=== PATIENT | male | born 1975 | race Caucasian/White ===

== ENCOUNTER → 2019-07-10 | Outpatient (CLI) | payer OTHER ==
[~2019-07-10] MED LIST: ORPH100T PO
[2019-07-10 09:48] LABS: ALBUMIN/GLOBULIN RATIO 1.1 (1.0-1.7); CALCIUM 8.9 mg/dL (8.5-10.1); CREATININE 1.1 mg/dL (0.7-1.3); GFR 73.4; TOTAL BILIRUBIN 0.8 mg/dL (0.2-1.0); TOTAL PROTEIN 7.5 g/dL (6.4-8.2)
--- NOTE | 2019-07-10 10:15 | RAD ---
EXAM: Left hip, 2 views; left shoulder, 3 views. HISTORY: Pain. COMPARISON: None. FINDINGS: Left hip: 2 views of the left hip are obtained. There is no fracture, dislocation or subluxation. The femoral head is normal in configuration. Left shoulder: 3 views of left shoulder obtained. There is no fracture, dislocation or subluxation. IMPRESSION: No acute osseous finding. Electronically signed by: Ju Cazares MD (07/10/2019 10:12 AM) [facility]
--- NOTE | 2019-07-10 10:15 | RAD ---
EXAM: Left hip, 2 views; left shoulder, 3 views. HISTORY: Pain. COMPARISON: None. FINDINGS: Left hip: 2 views of the left hip are obtained. There is no fracture, dislocation or subluxation. The femoral head is normal in configuration. Left shoulder: 3 views of left shoulder obtained. There is no fracture, dislocation or subluxation. IMPRESSION: No acute osseous finding. Electronically signed by: Ju Cazares MD (07/10/2019 10:12 AM) [facility]
== END | disposition home or self-care (01) ==
LOC: RAD 09:10
PROVIDERS: ATTEND Internal Medicine
DX: M25.512 Pain in left shoulder (principal); M25.552 Pain in left hip; E78.5 Hyperlipidemia, unspecified
CPT/HCPCS: 36415; 73030; 73502; 80053; 80061; 82550

== ENCOUNTER 2019-10-27 14:31 | Emergency (ER) | payer OTHER ==
[~2019-10-27] VITALS: Ht 170.2 cm; Wt 79.5 kg
[2019-10-27 14:59] LABS: BILIRUBIN,URINE NEGATIVE (NEG); CLARITY,URINE CLEAR; COLOR,URINE OTHER; NITRITE,URINE NEGATIVE (NEG); PROTEIN,URINE NEGATIVE (NEG-TRACE); UROBILINOGEN,URINE 0.2 mg/dL (0.2 mg/dL)
[2019-10-27 15:06] LABS: BACTERIA,URINE 0 /HPF (0-FEW); RBC,URINE 0 /HPF (0-2); WBC,URINE 0 /HPF (0-4)
[2019-10-27 15:23] LABS: BASO % 1 % (0-3); EOS # 0.2 x10^3/uL (0.0-0.7); EOS % 3 % (0-3); HEMATOCRIT 45.3 % (39.0-53.0); HEMOGLOBIN 15.3 g/dL (13.0-17.5); LYMPH # 1.6 x10^3/uL (1.0-4.8); LYMPH % 25 % (24-48); MEAN CORPUSCULAR HEMOGLOBIN 29 pg (25-35); MEAN CORPUSCULAR HGB CONC 34 g/dL (31-37); MEAN CORPUSCULAR VOLUME 87 fL (79-100); MONO # 0.5 x10^3/uL (0.0-1.1); MONO % 8 % (0-9); NEUT # 3.9 x10^3/uL (1.8-7.7); NEUT % 63 % (31-73); PLATELET COUNT 231 x10^3/uL (140-400); RED CELL DISTRIBUTION WIDTH 13.6 % (11.5-14.5); WHITE BLOOD COUNT 6.2 x10^3/uL (4.0-11.0)
[2019-10-27 16:11] LABS: CALCIUM 8.6 mg/dL (8.5-10.1); CREATININE 1.2 mg/dL (0.7-1.3); GFR 66.4; POTASSIUM 3.5 mmol/L (3.5-5.1)
[2019-10-27 16:19] LABS: ALBUMIN/GLOBULIN RATIO 1.2 (1.0-1.7); TOTAL BILIRUBIN 1.2 mg/dL (0.2-1.0); TOTAL PROTEIN 7.4 g/dL (6.4-8.2)
--- NOTE | 2019-10-27 16:39 | PHYS DOC ---
Past Medical History Past Medical History: High Cholesterol, Hypertension Past Surgical History: No Surgical History Smoking Status: Never Smoker Alcohol Use: Occasionally General Adult EDM: Chief Complaint: ABDOMINAL PAIN HPI: HPI: Patient is a 44 year old male presented to ER with left lower abdominal pain radiating to his left groin and left testicle area off and on for 2 weeks. Patient denies any fever, no urinary symptoms, no frequency or urgency. Patient denies any fever, no nausea vomiting. Patient to have a family history of kidney stone. Review of Systems: Review of Systems: Constitutional: Denies fever or chills. [] Eyes: Denies change in visual acuity. [] HENT: Denies nasal congestion or sore throat. [] Respiratory: Denies cough or shortness of breath. [] Cardiovascular: Denies chest pain or edema. [] GI: Positive for left lower abdominal pain : Denies dysuria. [] Musculoskeletal: Denies back pain or joint pain. [] Integument: Denies rash. [] Neurologic: Denies headache, focal weakness or sensory changes. [] Endocrine: Denies polyuria or polydipsia. [] Lymphatic: Denies swollen glands. [] Psychiatric: Denies depression or anxiety. [] Heart Score: Risk Factors: Risk Factors: DM, Current or recent (<one month) smoker, HTN, HLP, family history of CAD, obesity. Risk Scores: Score 0 - 3: 2.5% MACE over next 6 weeks - Discharge Home Score 4 - 6: 20.3% MACE over next 6 weeks - Admit for Clinical Observation Score 7 - 10: 72.7% MACE over next 6 weeks - Early Invasive Strategies Current Medications: Current Medications Medications (Trade) Dose Ordered Sig/[facility] Start Time Stop Time Status Last Admin Dose Admin Ketorolac Tromethamine (Toradol 30mg Vial) 30 mg 1X ONCE 10/27/19 16:45 10/27/19 16:46 Allergies: Allergies: Allergies Coded Allergies Type Severity Reaction Last Updated Verified Tetanus Vaccines and Toxoid Allergy Intermediate 07/10/19 No Physical Exam: PE: Constitutional: Well developed, well nourished, no acute distress, non-toxic appearance. [] HENT: Normocephalic, atraumatic, bilateral external ears normal, oropharynx moist, no oral exudates, nose normal. [] Eyes: PERRLA, EOMI, conjunctiva normal, no discharge. [] Neck: Normal range of motion, no tenderness, supple, no stridor. [] Cardiovascular:Heart rate regular rhythm, no murmur [] Lungs & Thorax: Bilateral breath sounds clear to auscultation [] Abdomen: Bowel sounds normal, soft, no tenderness, no masses, no pulsatile masses. [] Skin: Warm, dry, no erythema, no rash. [] Back: No tenderness, no CVA tenderness. [] Extremities: No tenderness, no cyanosis, no clubbing, ROM intact, no edema. [] Neurologic: Alert and oriented X 3, normal motor function, normal sensory function, no focal deficits noted. [] Psychologic: Affect normal, judgement normal, mood normal. [] Current Patient Data: Labs: Laboratory Tests Test 10/27/19 14:45 10/27/19 15:11 10/27/19 16:00 Urine Collection Type Unknown Urine Color Other Urine Clarity Clear Urine pH 7.0 (<5.0-8.0) Urine Specific [place] <=1.005 (1.000-1.030) Urine Protein Negative mg/dL (NEG-TRACE) Urine Glucose (UA) Negative mg/dL (NEG) Urine Ketones (Stick) Negative mg/dL (NEG) Urine Blood Negative (NEG) Urine Nitrite Negative (NEG) Urine Bilirubin Negative (NEG) Urine Urobilinogen Dipstick 0.2 mg/dL (0.2 mg/dL) Urine Leukocyte Esterase Negative (NEG) Urine RBC 0 /HPF (0-2) Urine WBC 0 /HPF (0-4) Urine Bacteria 0 /HPF (0-FEW) White Blood Count 6.2 x10^3/uL (4.0-11.0) Red Blood Count 5.20 x10^6/uL (4.30-5.70) Hemoglobin 15.3 g/dL (13.0-17.5) Hematocrit 45.3 % (39.0-53.0) Mean Corpuscular Volume 87 fL (79-100) Mean Corpuscular Hemoglobin 29 pg (25-35) Mean Corpuscular Hemoglobin Concent 34 g/dL (31-37) Red Cell Distribution Width 13.6 % (11.5-14.5) Platelet Count 231 x10^3/uL (140-400) Neutrophils (%) (Auto) 63 % (31-73) Lymphocytes (%) (Auto) 25 % (24-48) Monocytes (%) (Auto) 8 % (0-9) Eosinophils (%) (Auto) 3 % (0-3) Basophils (%) (Auto) 1 % (0-3) Neutrophils # (Auto) 3.9 x10^3/uL (1.8-7.7) Lymphocytes # (Auto) 1.6 x10^3/uL (1.0-4.8) Monocytes # (Auto) 0.5 x10^3/uL (0.0-1.1) Eosinophils # (Auto) 0.2 x10^3/uL (0.0-0.7) Basophils # (Auto) 0.0 x10^3/uL (0.0-0.2) Sodium Level 138 mmol/L (136-145) Potassium Level 3.5 mmol/L (3.5-5.1) Chloride Level 100 mmol/L (98-107) Carbon Dioxide Level 29 mmol/L (21-32) Anion Gap 9 (6-14) Blood Urea Nitrogen 13 mg/dL (8-26) Creatinine 1.2 mg/dL (0.7-1.3) Estimated GFR (Cockcroft-Gault) 66.4 BUN/Creatinine Ratio 11 (6-20) Glucose Level 102 mg/dL (70-99) H Calcium Level 8.6 mg/dL (8.5-10.1) Total Bilirubin 1.2 mg/dL (0.2-1.0) H Aspartate Amino Transferase (AST) 41 U/L (15-37) H Alanine Aminotransferase (ALT) 58 U/L (16-63) Alkaline Phosphatase 128 U/L (46-116) H Total Protein 7.4 g/dL (6.4-8.2) Albumin 4.0 g/dL (3.4-5.0) Albumin/Globulin Ratio 1.2 (1.0-1.7) Lipase 137 U/L (73-393) Laboratory Tests 10/27/19 15:11 Laboratory Tests 10/27/19 16:00 Vital Signs: Vital Signs Date Time Temp Pulse Resp B/P (MAP) Pulse Ox O2 Delivery O2 Flow Rate FiO2 10/27/19 14:50 98.1 98 16 157/99 (118 96 Room Air 98.1 EKG: EKG: [] Radiology/Procedures: Radiology/Procedures: [][facility] [address] [place] [address] IMAGING REPORT Signed PATIENT: CALIXTO SALCEDO ACCOUNT: [id number] : 1975 LOCATION: ER AGE: 44 SEX: M EXAM STATUS: REG ER ORD. PHYSICIAN: SID MARRERO DO REASON: LEFT FLANK PAIN, RADIATING TO LEFT GROIN AREA. PROCEDURE: CT ABDOMEN PELVIS WO CONTRAST CT Abdomen and Pelvis without contrast History: Left flank pain to the left groin Technique: Noncontrast CT imaging was performed of the abdomen and pelvis. Multiplanar images are reviewed. Exposure: One or more of the following individualized dose reduction techniques were utilized for this examination: 1. Automated exposure control 2. Adjustment of the mA and/or kV according to patient size 3. Use of iterative reconstruction technique. Comparison: None Findings: Urinary bladder is distended. There is no hydronephrosis or urolithiasis. Accurate evaluation of abdominal visceral organs is limited without intravenous contrast. There is no obvious abnormality of the spleen, liver, or pancreas. There is likely mild hepatic steatosis. There is no adrenal nodularity. Gallbladder is present without obvious intraluminal abnormality by CT. Accurate evaluation of bowel is limited without oral contrast. There is no free air or free fluid. Proximal small bowel in the left abdomen is borderline in caliber about 3 cm. There are nonspecific mesenteric nodes including right lower quadrant posterior to the cecum about 0.6 cm, not considered significantly enlarged. Appendix is not clearly identified if still present. Impression: 1. There is no urolithiasis or hydronephrosis. Urinary bladder is distended. 2. There is likely mild hepatic steatosis. 3. There is borderline caliber proximal small bowel in the left abdomen, consideration of enteritis and mild segmental ileus, considered more likely than partial obstruction. Electronically signed by: Allie Hylton MD (10/27/2019 5:28 PM) [facility] DICTATED and SIGNED BY: ALLIE HYLTON MD DATE: 10/27/19 1722 Course & Med Decision Making: Course & Med Decision Making Pertinent Labs and Imaging studies reviewed. (See chart for details) Patient is a 44-year-old male who was evaluated in ER due to left lower abdominal pain, patient had no nausea vomiting, had no clinical evidence of bowel obstruction or an ileus. CT scan of his abdomen pelvis did not show any acute problem. Patient will be discharged home, he will need to follow-up with family doctor for referral to GI specialist for further evaluation and treatment. Patient is amenable to plan of care. Dragon Disclaimer: Dragon Disclaimer: This electronic medical record was generated, in whole or in part, using a voice recognition dictation system. Departure Departure Impression: Primary Impression: Abdominal pain Disposition: 01 HOME, SELF-CARE Condition: IMPROVED Referrals: DONG JACOB MD (PCP) please follow up with your doctor for a referral to GI specialist for further evaluation and treatment. Patient Instructions: Abdominal Pain SID MARRERO DO October 27, 2019 16:39
[2019-10-27] MEDS ORDERED: KETOROLAC 30 MG/ML VIAL. IVP ONE (16:45)
--- NOTE | 2019-10-27 17:31 | RAD ---
CT Abdomen and Pelvis without contrast History: Left flank pain to the left groin Technique: Noncontrast CT imaging was performed of the abdomen and pelvis. Multiplanar images are reviewed. Exposure: One or more of the following individualized dose reduction techniques were utilized for this examination: 1. Automated exposure control 2. Adjustment of the mA and/or kV according to patient size 3. Use of iterative reconstruction technique. Comparison: None Findings: Urinary bladder is distended. There is no hydronephrosis or urolithiasis. Accurate evaluation of abdominal visceral organs is limited without intravenous contrast. There is no obvious abnormality of the spleen, liver, or pancreas. There is likely mild hepatic steatosis. There is no adrenal nodularity. Gallbladder is present without obvious intraluminal abnormality by CT. Accurate evaluation of bowel is limited without oral contrast. There is no free air or free fluid. Proximal small bowel in the left abdomen is borderline in caliber about 3 cm. There are nonspecific mesenteric nodes including right lower quadrant posterior to the cecum about 0.6 cm, not considered significantly enlarged. Appendix is not clearly identified if still present. Impression: 1. There is no urolithiasis or hydronephrosis. Urinary bladder is distended. 2. There is likely mild hepatic steatosis. 3. There is borderline caliber proximal small bowel in the left abdomen, consideration of enteritis and mild segmental ileus, considered more likely than partial obstruction. Electronically signed by: Rylan Holden MD (10/27/2019 5:28 PM) [facility]
[2019-10-27 18:00] VITALS: BP 132/78
== END 2019-10-27 18:23 | disposition home or self-care (01) ==
LOC: ER 14:31
DX: R10.32 Left lower quadrant pain (principal); E78.00 Pure hypercholesterolemia, unspecified; I10 Essential (primary) hypertension
CPT/HCPCS: 36415; 74176; 80053; 81001; 83690; 85025; 96374; 99284; J1885

== ENCOUNTER → 2020-02-08 | Outpatient (CLI) | payer OTHER ==
--- NOTE | 2020-02-08 16:24 | RAD ---
Examination: Ultrasound left hip without contrast HISTORY: History of left hip pain, arthralgia COMPARISON: None available Technique: Multiplanar, multisequence MR imaging of the left hip was performed without contrast. FINDINGS: The left femoral head is within the acetabulum. The attachment of the hamstring tendon to the ischial tuberosity, attachment of the gluteal tendons to the greater trochanter, attachment of the iliopsoas tendon to the lesser trochanter and the attachment of the rectus femoris tendon to the anterior inferior iliac spine grossly appears intact. Mild increased signal identified at the attachment of the gluteal tendons to the greater trochanter could be mild tendinosis. Mild joint space loss in the left hip joint likely degenerative changes. Evaluation of the labrum is limited on this examination. IMPRESSION: 1. Mild tendinosis of the gluteal tendons. 2. Mild degenerative changes left hip joint. 3. Evaluation of the labrum is limited on this examination. If labral pathology is suspected consider MR arthrogram. Electronically signed by: Rk Calix MD (02/08/2020 4:21 PM) [id number]
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
== END ==
LOC: MRI 14:16
PROVIDERS: ATTEND Physician Assistant
DX: S43.432A Superior glenoid labrum lesion of left shoulder, initial encounter (principal); M16.12 Unilateral primary osteoarthritis, left hip; M76.02 Gluteal tendinitis, left hip; M77.9 Enthesopathy, unspecified; X58.XXXA Exposure to other specified factors, initial encounter; Y92.89 Other specified places as the place of occurrence of the external cause; Y93.89 Activity, other specified; Y99.8 Other external cause status
CPT/HCPCS: 73221; 73721

== ENCOUNTER → 2020-03-11 | Outpatient (CLI) | payer OTHER ==
[~2020-03-11] MED LIST changes: +CONTRAST GIVEN. MC PRN; +GADOTERATE 7.5 MMOL/15ML VIAL. IVP ONE; +IOHEXOL 180 MG/ML 10 ML VIAL. IJ ONE; +LIDOCAINE 1% Multi-Dose 20 ML VIAL. INJ ONE; +LIDOCAINE 1% Multi-Dose 20 ML VIAL. ONE
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
--- NOTE | 2020-03-11 16:48 | RAD ---
Examination: MR arthrogram left hip HISTORY: History of left hip pain COMPARISON: 02/08/2020 TECHNIQUE: Multiplanar, multisequence MR imaging of the left hip was performed after arthrogram injection. FINDINGS: The femoral head is within the acetabulum. The attachment of the hamstring tendon to the ischial tuberosity, attachment of the gluteal tendons to the greater trochanter, attachment of the iliopsoas tendon to the lesser trochanter and the attachment of the rectus femoris tendon to the anterior inferior iliac spine grossly appears intact. Mild increased T2 signal identified about the gluteal tendons likely mild tendinosis. The visualized labrum grossly appears unremarkable. There is faint increased T2 signal with questionable low T1 signal identified in the left ilium just proximal to the acetabulum. IMPRESSION: 1. Faint increased T2 signal with questionable low T1 signal identified in the left ilium just proximal to the acetabulum could be stress reactive change or stress fracture. Please note this was not included in the field of view on the prior exam. 2. Mild tendinosis the gluteal tendons. 3. The visualized labrum grossly appears unremarkable. Electronically signed by: Rk Calix MD (03/11/2020 4:46 PM) [id number]
== END ==
LOC: RAD 13:20
PROVIDERS: ATTEND Physician Assistant
DX: S73.192A Other sprain of left hip, initial encounter (principal); V98.8XXA Other specified transport accidents, initial encounter; Y93.89 Activity, other specified; Y92.89 Other specified places as the place of occurrence of the external cause; Y99.8 Other external cause status
CPT/HCPCS: 27093; 73525; 73722; A9575; Q9965

== ENCOUNTER 2020-07-08 20:44 | Emergency (ER) | payer OTHER ==
[~2020-07-08] VITALS: Ht 170.2 cm; Wt 81.2 kg
[~2020-07-08 20:44] MED LIST changes: -CONTRAST GIVEN. MC PRN; -GADOTERATE 7.5 MMOL/15ML VIAL. IVP ONE; -IOHEXOL 180 MG/ML 10 ML VIAL. IJ ONE; -LIDOCAINE 1% Multi-Dose 20 ML VIAL. INJ ONE; -LIDOCAINE 1% Multi-Dose 20 ML VIAL. ONE
[2020-07-08 21:22] LABS: BASO # 0.1 x10^3/uL (0.0-0.2); BASO % 1 % (0-3); EOS # 0.2 x10^3/uL (0.0-0.7); EOS % 4 % (0-3); HEMATOCRIT 43.3 % (39.0-53.0); HEMOGLOBIN 14.5 g/dL (13.0-17.5); LYMPH # 2.5 x10^3/uL (1.0-4.8); LYMPH % 38 % (24-48); MEAN CORPUSCULAR HEMOGLOBIN 29 pg (25-35); MEAN CORPUSCULAR HGB CONC 34 g/dL (31-37); MEAN CORPUSCULAR VOLUME 87 fL (79-100); MONO # 0.5 x10^3/uL (0.0-1.1); MONO % 8 % (0-9); NEUT # 3.3 x10^3/uL (1.8-7.7); NEUT % 49 % (31-73); PLATELET COUNT 220 x10^3/uL (140-400); RED BLOOD COUNT 4.97 x10^6/uL (4.30-5.70); RED CELL DISTRIBUTION WIDTH 13.7 % (11.5-14.5); WHITE BLOOD COUNT 6.7 x10^3/uL (4.0-11.0)
[2020-07-08 21:37] LABS: CALCIUM 8.7 mg/dL (8.5-10.1); CREATININE 1.2 mg/dL (0.7-1.3); GFR 66.1; POTASSIUM 3.7 mmol/L (3.5-5.1)
[2020-07-08 21:52] LABS: ALBUMIN/GLOBULIN RATIO 1.2 (1.0-1.7); TOTAL BILIRUBIN 0.4 mg/dL (0.2-1.0); TOTAL PROTEIN 7.3 g/dL (6.4-8.2)
--- NOTE | 2020-07-08 22:06 | RAD ---
XR CHEST 1V Clinical History: Reason: chest pain / Spl. Instructions: / History: Technique: AP view of the chest was obtained at 07/08/2020 9:57 PM. Comparison: March 15, 2013. Findings: The cardiomediastinal silhouette is normal. The pulmonary vasculature is normal. The lungs and pleura l margins are clear. Impression: No evidence of an acute cardiopulmonary process. Electronically signed by: Kendall Srivastava III, MD (07/08/2020 10:04 PM) [facility]
--- NOTE | 2020-07-08 23:18 | PHYS DOC ---
Past Medical History Past Medical History: High Cholesterol, Hypertension Past Surgical History: No Surgical History Smoking Status: Never Smoker Alcohol Use: Occasionally Adult General Chief Complaint Chief Complaint: CHEST PAIN HPI HPI Patient is a 45 year old male with a past medical history of hypertension hyperlipidemia presenting to the emergency department complaining of new onset of left-sided arm pain after an episode of syncope. Patient states that he was lying in the couch watching TV when he then woke up sometime later found on the ground by his . Believe that he had a syncopal event. Since that time patient has been stating that he has been having some pain in the left inner arm just adjacent to the axilla. Notes some radiation into the left fingers. Currently denies any chest pain, fever, chills, dizziness, lightheadedness, nausea or vomiting Review of Systems Review of Systems Constitutional: Denies fever or chills [] Eyes: Denies change in visual acuity, redness, or eye pain [] HENT: Denies nasal congestion or sore throat [] Respiratory: Denies cough or shortness of breath [] Cardiovascular: No additional information not addressed in HPI [] GI: Denies abdominal pain, nausea, vomiting, bloody stools or diarrhea [] : Denies dysuria or hematuria [] Musculoskeletal: Denies back pain or joint pain [] Integument: Denies rash or skin lesions [] Neurologic: Denies headache, focal weakness or sensory changes [] Endocrine: Denies polyuria or polydipsia [] All other systems were reviewed and found to be within normal limits, except as documented in this note. Allergies Allergies Allergies Coded Allergies Type Severity Reaction Last Updated Verified Tetanus Vaccines and Toxoid Allergy Intermediate 07/10/19 No Physical Exam Physical Exam Constitutional: Well developed, well nourished, no acute distress, non-toxic appearance. [] HENT: Normocephalic, atraumatic, bilateral external ears normal, oropharynx moist, no oral exudates, nose normal. [] Eyes: PERRLA, EOMI, conjunctiva normal, no discharge. [] Neck: Normal range of motion, no tenderness, supple, no stridor. [] Cardiovascular:Heart rate regular rhythm, no murmur [] Lungs & Thorax: Bilateral breath sounds clear to auscultation [] Abdomen: Bowel sounds normal, soft, no tenderness, no masses, no pulsatile masses. [] Skin: Warm, dry, no erythema, no rash. [] Back: No tenderness, no CVA tenderness. [] Extremities: No tenderness, no cyanosis, no clubbing, ROM intact, no edema. [] Neurologic: Alert and oriented X 3, normal motor function, normal sensory function, no focal deficits noted. [] Psychologic: Affect normal, judgement normal, mood normal. [] Current Patient Data Vital Signs Vital Signs Date Time Temp Pulse Resp B/P (MAP) Pulse Ox O2 Delivery O2 Flow Rate FiO2 07/08/20 20:50 97.9 80 20 160/89 (112) 96 Room Air 97.9 Lab Values Laboratory Tests Test 07/08/20 21:00 White Blood Count 6.7 x10^3/uL (4.0-11.0) Red Blood Count 4.97 x10^6/uL (4.30-5.70) Hemoglobin 14.5 g/dL (13.0-17.5) Hematocrit 43.3 % (39.0-53.0) Mean Corpuscular Volume 87 fL (79-100) Mean Corpuscular Hemoglobin 29 pg (25-35) Mean Corpuscular Hemoglobin Concent 34 g/dL (31-37) Red Cell Distribution Width 13.7 % (11.5-14.5) Platelet Count 220 x10^3/uL (140-400) Neutrophils (%) (Auto) 49 % (31-73) Lymphocytes (%) (Auto) 38 % (24-48) Monocytes (%) (Auto) 8 % (0-9) Eosinophils (%) (Auto) 4 % (0-3) H Basophils (%) (Auto) 1 % (0-3) Neutrophils # (Auto) 3.3 x10^3/uL (1.8-7.7) Lymphocytes # (Auto) 2.5 x10^3/uL (1.0-4.8) Monocytes # (Auto) 0.5 x10^3/uL (0.0-1.1) Eosinophils # (Auto) 0.2 x10^3/uL (0.0-0.7) Basophils # (Auto) 0.1 x10^3/uL (0.0-0.2) Sodium Level 141 mmol/L (136-145) Potassium Level 3.7 mmol/L (3.5-5.1) Chloride Level 102 mmol/L (98-107) Carbon Dioxide Level 26 mmol/L (21-32) Anion Gap 13 (6-14) Blood Urea Nitrogen 13 mg/dL (8-26) Creatinine 1.2 mg/dL (0.7-1.3) Estimated GFR (Cockcroft-Gault) 66.1 BUN/Creatinine Ratio 11 (6-20) Glucose Level 112 mg/dL (70-99) H Calcium Level 8.7 mg/dL (8.5-10.1) Magnesium Level 8.0 mg/dL (1.8-2.4) H Total Bilirubin 0.4 mg/dL (0.2-1.0) Aspartate Amino Transferase (AST) 49 U/L (15-37) H Alanine Aminotransferase (ALT) 74 U/L (16-63) H Alkaline Phosphatase 122 U/L (46-116) H Troponin I Quantitative < 0.017 ng/mL (0.000-0.055) Total Protein 7.3 g/dL (6.4-8.2) Albumin 4.0 g/dL (3.4-5.0) Albumin/Globulin Ratio 1.2 (1.0-1.7) Lipase 134 U/L (73-393) Laboratory Tests 07/08/20 21:00 Laboratory Tests 07/08/20 21:00 EKG EKG NSR, no ST or T wave changes, no QRS widening, intervals normal, no STEMI Radiology/Procedures Radiology/Procedures XR CHEST 1V Clinical History: Reason: chest pain / Spl. Instructions: / History: Technique: AP view of the chest was obtained at 07/08/2020 9:57 PM. Comparison: March 15, 2013. Findings: The cardiomediastinal silhouette is normal. The pulmonary vasculature is normal. The lungs and pleural margins are clear. Impression: No evidence of an acute cardiopulmonary process. Electronically signed by: Kendall Srivastava III, MD (07/08/2020 10:04 PM) [facility] Course & Med Decision Making Course & Med Decision Making Pertinent Labs and Imaging studies reviewed. (See chart for details) 45M presenting with what appears to be a syncopal event with some left-sided arm pain which does raise concern for acute coronary syndrome. Patient did note that he also has a significant family history and had a mother that have coronary artery bypass graft at the age of 40. Patient notes that he has been seen and evaluated emergency department a few times previously for chest pain. At this time will complete an ACS work-up. There are some consideration that th is may simply be left median nerve or axillary neuropathy but given the patient's history and ACS work-up is warranted. 23:19 -labs reviewed and unremarkable. No significant evidence of cardiac abno rmality. Patient's heart score is2 however given his sudden onset of syncope and family history of significant cardiovascular disease I did recommend the patient stay for observation and 2D echo and possible cardiology evaluation. Patient has declined stating that he wishes to follow-up with his own care asst this week instead. I explained to the patient that we could not guarantee safety and the patient stated that he still wished to leave AMA. I explained the patient fully that this could result in significant morbidity mortality and the patient still stated that he wanted to leave AMA. Dragon Disclaimer Dragon Disclaimer This electronic medical record was generated, in whole or in part, using a voice recognition dictation system. Departure Departure Disposition: AMA/ELOPED/LWBS Condition: GOOD Referrals: DONG JACOB MD (PCP) Patient Instructions: Syncope Additional Instructions: EMERGENCY DEPARTMENT GENERAL DISCHARGE INSTRUCTIONS Thank you for coming to [facility] Emergency Department (ED) today and trusting us with you care. We trust that you had a positive experience in our Emergency Department. If you wish to speak to the department management, you may call the Director at [phone]. YOUR FOLLOW UP INSTRUCTIONS ARE FOLLOWS: 1. Do you have a private Doctor? If you do not have a private doctor, please ask for a resource list of physicians or clinics that may be able to assist you with follow up care. 2. The Emergency Physicain has interpreted your x-rays. The X-Ray specialist will also review them. If there is a change in the findings, you will be notified in 48 hours when at all possible. 3. A lab test or culture has been done, your results will be reviewed and you will be notified if you need a change in treatment. ADDITIONAL INSTRUCTIONS AND INFORMATION: 1. Your care today has been supervised by a physician who is specially trained in emergency care. Many problems require more than one evaluation for a complete diagnosis and treatment. We recommend that you schedule your follow up appointment as recommended to ensure complete treatment of you illness or injury. If you are unable to obtain follow up care and continue to have a problem, or if your condition worsens, we recommend that you return to the ED. 2. We are not able to safely determine your condition over the phone nor are we able to give sound medical advice over the phone. For these safety reasons, if you call for medical advice we will ask you to come to the ED for further evaluation. 3. If you have any questions regarding these discharge instructions please call the ED at [phone]. SAFETY INFORMATION: In the interest of safety, wellness, and injury prevention; we encourage you to wear your sealbelt, if you smoke; quite smoking, and we encourage family to use a protective helmet for bicycling and other sporting events that present an increased risk for head injury. IF YOUR SYMPTOMS WORSEN OR NEW SYMPTOMS DEVELOP, OR YOU HAVE CONCERNS ABOUT YOUR CONDITION; OR IF YOUR CONDITION WORSENS WHILE YOU ARE WAITING FOR YOUR FOLLOW UP APPOINTMENT; EITHER CONTACT YOUR PRIMARY CARE DOCTOR, THE PHYSICIAN WHOSE NAME AND NUMBER YOU WERE GIVEN, OR RETURN TO THE ED IMMEDIATELY. ZARA MONTESINOS MD Jul 08, 2020 23:18
[2020-07-08 23:30] VITALS: BP 126/89
--- NOTE | 2020-07-09 06:16 | EKG ---
[facility] [address] [place] [address] Test Date: 2020-07-08 Test Time: 22:52:49 Pat Name: CALIXTO SALCEDO Department: Room: Gender: M Head Custodian: : 1975 Requested By: ZARA MONTESINOS Order Number: [id number] Reading MD: Measurements Intervals Canmer Rate: 79 P: 45 CO: 168 QRS: 23 QRSD: 84 T: 16 QT: 362 QTc: 416 Interpretive Statements SINUS RHYTHM NORMAL ECG RI6.02 Compared to ECG 07/08/2020 20:57:49 T-wave abnormality no longer present Prolonged QT interval no longer present
== END 2020-07-08 23:45 | disposition left against medical advice (07) ==
LOC: ER 20:44
DX: R55 Syncope and collapse (principal); M79.602 Pain in left arm; I10 Essential (primary) hypertension; E78.00 Pure hypercholesterolemia, unspecified; E78.5 Hyperlipidemia, unspecified; Z88.7 Allergy status to serum and vaccine
CPT/HCPCS: 36415; 71045; 80053; 83690; 83735; 84484; 85025; 93005; 99285-25

== ENCOUNTER → 2020-09-01 | Outpatient (CLI) | payer OTHER ==
[2020-09-01 09:55] LABS: ALBUMIN 3.9 g/dL (3.4-5.0); ALBUMIN/GLOBULIN RATIO 1.1 (1.0-1.7); CALCIUM 8.8 mg/dL (8.5-10.1); CREATININE 1.1 mg/dL (0.7-1.3); GFR 73.1; POTASSIUM 4.2 mmol/L (3.5-5.1); TOTAL BILIRUBIN 0.9 mg/dL (0.2-1.0); TOTAL PROTEIN 7.6 g/dL (6.4-8.2)
[2020-09-01 09:57] LABS: CHOLESTEROL/HDL RATIO 2.4
[2020-09-01 10:33] LABS: BASO % 0 % (0-3); EOS # 0.1 x10^3/uL (0.0-0.7); EOS % 3 % (0-3); HEMATOCRIT 41.8 % (39.0-53.0); HEMOGLOBIN 13.9 g/dL (13.0-17.5); LYMPH # 1.2 x10^3/uL (1.0-4.8); LYMPH % 24 % (24-48); MEAN CORPUSCULAR HEMOGLOBIN 29 pg (25-35); MEAN CORPUSCULAR HGB CONC 33 g/dL (31-37); MEAN CORPUSCULAR VOLUME 88 fL (79-100); MONO # 0.5 x10^3/uL (0.0-1.1); MONO % 10 % (0-9); NEUT # 3.1 x10^3/uL (1.8-7.7); NEUT % 63 % (31-73); PLATELET COUNT 203 x10^3/uL (140-400); RED BLOOD COUNT 4.77 x10^6/uL (4.30-5.70); WHITE BLOOD COUNT 4.9 x10^3/uL (4.0-11.0)
[2020-09-02 01:09] LABS: HEMOGLOBIN A1C 5.4 % (4.8-5.6)
== END ==
LOC: LAB 09:11
PROVIDERS: ATTEND Nurse Practitioner Family
DX: Z13.1 Encounter for screening for diabetes mellitus (principal); E78.5 Hyperlipidemia, unspecified; I10 Essential (primary) hypertension
CPT/HCPCS: 36415; 80053; 80061; 83036; 84443; 85025

== ENCOUNTER → 2021-02-03 | Outpatient (CLI) | payer OTHER ==
--- NOTE | 2021-02-04 23:15 | RAD ---
MR#: [id number] Date of Study: 02/03/2021 Ordering Physician: CHRISTIANO THORNTON, Referring Physician: CHRISTIANO THORNTON, Tech: Black Padilla MBA, RDMS, RVT, RDCS, RTR APPROVED REPORT Patient Location: OUT-PATIENT Indications Uncontrolled HTN Renal Artery Doppler Right Renal Artery Left Renal Arter y Proximal 119.0/36.0 cm/secProximal 114.0/32.0 cm/sec Mid 121.0/35.0 cm/secMid 107.0/32.0 cm/sec Distal 103.0/33.0 cm/secDistal 96.0/32.0 cm/sec Renal/Aorta Ratio 1.10Renal/Aorta Ratio 1.00 Prox. Resistive Index 0.70Prox. Resistive Index 0.72 Mid Resistive Index 0.72Mid Resistive Index 0.70 Distal Resistive Index 0.69Distal Resistive Index 0.67 Rt. Segmental A. 37.0/13.0 cm/secLt. Segmental A. 42.0/19.0 cm/sec Renal Measurements RightLeft Kidney Xysafw89.8 cm cmKidney Nvctbd56.4 cm cm Right Additional FindingsLeft Additional Findings Aortic Doppler VelocityWaveform Distal Aorta 112.0 cm/sec Findings Overall grayscale images of the bilateral kidneys are grossly unremarkable. The proximal, mid and distal renal arteries bilaterally have normal velocities. There are normal res istive indices and renal to aortic ratios bilaterally. Normal aortic velocities in the mid and dista l segments. The proximal abdominal aorta was not well visualized. Critical Notification Critical Value: No <Conclusion> 1. No significant renal artery stenosis bilaterally Signed by : Christiano Thornton, Electronically Approved : 02/04/2021 23:14:58
--- NOTE | 2021-02-08 11:00 | RAD ---
MR#: [id number] Date of Study: 02/03/2021 Ordering Physician: CHRISTIANO RO, Referring Physician: GISELLE KELLEY Tech: RT Serena (R) (N) APPROVED REPORT Test Type: Exercise Stress Nurse/Tech: NARINDER PAYNE Test Indications: DYSPNEA, FATIGUE, PALPITATIONS Cardiac History: HTN- SEE EMR Medications: SEE EMR Medical History: SEE EMR Resting ECG: SR W/PAC'S Resting Heart Rate: 92 bpm Resting Blood Pressure: 134/83mmHg Pretest Chest Pain: No chest pain Nurse/Tech Notes S1,S2, VSS, DENIED SHORTNESS OF BREATH OR CHEST PAIN, LUNGS CTA. Consent: The procedure was explained to the patient in lay terms. Informed consent was witnessed. Sigifredo eout was entered into ison furniture. History and Stress Test performed by KVNG Campos, RUSS (Riley) (N) Stress Symptoms PT TOLERATED TREADMILL TEST WITHOUT DIFFICULTY, ONLY COMPLAINT WAS SHORTNESS OF BREATH AT THE END OF PHASE 2. VS WNL. POST EXERCISE Reason for Termination: Reached target heart rate Target HR: 150 Max HR: 157 bpm 104% of Maximum Predicted HR: 150 bpm Exercise duration: 6:11 min:sec, Stage Exercise capacity: 10.0METs Max Blood Pressure: 170/78mmHg Blood Pressure response to exercise: Normal blood pressure response during stress. Heart Rate response to exercise: WNL Chest Pain: No. Arrhythmia: No. ST Change: No. INTERPRETATION Stress EKG Conclusion: No evidence of stress induced EKG changes. Imaging Protocol IMAGE PROTOCOL: Rest Tc-99m/stress Tc-99m 1 day Rest: Stress: Viability: Radiopharm.Tc99m JbqcwkrevQu91e Sestamibi Bpfp04aGa 32mCi Duration 15min. 10min. Img Date 02/03/2021 02/03/2021 Inj-Img [id number]. 60min. Rest Admin Site:IV - Left AntecubitalAdministrator:LI Forbes Stress Admin Site: IV - Left AntecubitalAdministrator: Liset Grewal, NMTCB, ARRT (R)(N) STRESS DATA End Diast. Vol.91.0mlAv. Heart Sukr053.0bpm End Syst. Vol.15.0mlCO Index BSA0.0L/min Myocardial Lewj054.0gEject. Ygptvmdh51.0% Stress Rates Pk. Fill Rate4.09EDV/secLVtime Pk. Fill 104.98msec Pk. Empty Rate5.34ESV/secLVtime Pk. Wmjlt292.91msec 06/15 Pk. Fill2.02EDV/sec Stress Scores Regional WT0.00Summed WT0.00 Regional WM0.00Summed WM0.00 The rest and stress images show normal perfusion, normal contraction and thickening. LV Perf. Quant 17 Seg. SSS0.00 17 Seg. SRS0.00 17 Seg. SDS0.00 Stress Defect Extent (% LAD)0.00Rest Defect Extent (% LAD)0.00Rev. Defect Extent (% LAD)0.00 Stress Defect Extent (% LCX) 0.00Rest Defect Extent (% LCX)0.00Rev. Defect Extent (% LCX)0.00 Stress Defect Extent (% RCA)0.00Rest Defect Extent (% RCA)0.00Rev. Defect Extent (% RCA)0.00 Stress Defect Extent (% KEVEN)0.00Rest Defect Extent (% KEVEN)0.00Rev. Defect Extent (% KEVEN)0.00 Other Information Quality:Average Risk Assessment: Low Risk Conclusion 1. No evidence of EKG changes with stress testing. 2. Normal perfusion at stress/rest. 3. Low risk study. 4. EF > 60%. Signed by : Christiano Ro, Electronically Approved : 02/08/2021 10:59:54
== END ==
LOC: NM 08:22
PROVIDERS: ATTEND Internal Medicine Cardiovascular Disease
DX: I10 Essential (primary) hypertension (principal); R06.00 Dyspnea, unspecified
CPT/HCPCS: 78452; 93017; 93975; A9500